=== PATIENT | female | born 1995 | race Caucasian/White ===

== ENCOUNTER 2016-11-19 21:18 | Emergency (ER) | payer OTHER ==
[~2016-11-19] VITALS: Ht 165.1 cm; Wt 61.5 kg
[2016-11-19 21:40] VITALS: TEMP 36.9; Ht 165.1 cm; Wt 61.5 kg
[2016-11-19] MEDS ORDERED: XYLOCAINE 1%/SOD BICARB 20 ML VIAL INFIL ONE (22:15)
[2016-11-19] MEDS ORDERED: BUPIVACAINE 0.5 % 5 MG/1 ML MPF 30ML VIAL INFIL ONE (22:15)
--- NOTE | 2016-11-19 22:31 | EMERGENCY ROOM VISIT NOTE ---
ED Visit Note First contact with patient: 21:51 CHIEF COMPLAINT: Finger laceration HISTORY OF PRESENT ILLNESS: This 21-year-old female patient presents to the emergency department approximately 30 minutes after cutting the right index finger she dropped a 50 pound weight on it. The bleeding has not stopped. Denies weakness or numbness of the finger. The patient has full range of motion of the fingers, however movement of the DIP does cause increased pain.. The patient rates the pain as throbbing and 7/10. The patient denies any other injuries. The patient's tetanus shot is up to date. REVIEW OF SYSTEMS: A 6 system review of systems was completed with positives and pertinent negatives listed in the HPI. ALLERGIES: None MEDICATIONS: None PMH: None SOCIAL HISTORY: The patient is a [employer] student. She lives locally with her roommate. The patient denies drug, alcohol, tobacco use. PHYSICAL EXAM: Vital Signs: Reviewed Nurse's notes, vital signs stable. GENERAL : This is a 21-year-old [facility] female, in no acute distress, well developed, well nourished. SKIN: There is a partial avulsion of the fingernail on the right index finger. Upon further inspection, the avulsion is down to the bone. The fingernail does remain attached on the lateral aspect of the finger. There is no foreign material in the wound and it looks clean. There is minimal active bleeding. No obvious tendons or significant blood vessels are seen in the base of the wound. Extension and flexion of the finger is full and strong. Full range of motion of the wrist and other fingers. Capillary refill less than 2 seconds. Normal sensation to light and sharp touch. RADIOLOGY: X-ray right index finger: FINDINGS: Alignment of the right second finger is anatomic. There is no acute fracture. There is soft tissue irregularity of the dorsal aspect of the distal right second finger which suggests soft tissue injury. There is no radiopaque foreign body. IMPRESSION: No acute fracture or dislocation of the right second finger. EMERGENCY DEPARTMENT COURSE: I examined the patient. Verbal consent was obtained to perform the procedure. Using sterile technique the wound was cleansed with Betadine. 4 ml of 1% buffered lidocaine with 0.5% bupivacaine was used to perform a digital block to anesthetize the patient. The area was sterilely draped. Once the patient was anesthetized, the wound was copiously irrigated under pressure with sterile saline. The wound was explored and there were no deep structures injured, however the avulsion was down to the bone. There were 2 small areas of active bleeding on inspection underneath the fingernail. These were ligated with 2 simple interrupted 5-0 Vicryl sutures. The fingernail was tacked down to cover the wound using 3 simple interrupted 5- 0 nylon sutures. The patient tolerated the procedure well. Hemostasis was achieved. The area was cleaned with sterile saline and dressed with bacitracin ointment and bandage. The patient was discharged home in good condition. DIFFERENTIAL DIAGNOSIS: Finger laceration, fracture, nail avulsion, avulsion fracture, open fracture, contusion, nail bed laceration, and others DIAGNOSIS: Partial fingernail avulsion DISCHARGE INSTRUCTIONS & TREATMENT: You have received 3 sutures on your finger nail. These sutures are NOT dissolvable and WILL need to be removed by a health care provider in 14 days. You can return to the Emergency Department or contact your Primary Care Provider to have the sutures removed. He did receive 2 dissolvable sutures underneath the fingernail. The sutures will dissolve on their own. Proper wound care is essential for adequate wound healing and infection prevention. You can shower and clean the wound with soap and water. Do not scour over the wound, pat dry with a towel. Do not submerse the wound (i.e. bathe or dish wash) until the sutures have been removed. You can use an antibiotic ointment with a dressing over the wound for the next 3-4 days. After this time you may leave the wound dry and open to the air. If crust develops over the wound you can use a Q-tip to apply a 1:1 peroxide:water solution to clean the wound. You were prescribed Keflex to be taken 4 times daily. This is an antibiotic. All antibiotics have the potential to cause diarrhea. Stop this medication and contact a medical provider if you were to develop any significant adverse side effects including: wheezing, shortness of breath, passing out, vomiting, or a diffuse rash. Always take antibiotics as directed and COMPLETE the ENTIRE course regardless of the improvement of your symptoms. Look for signs of infection of the wound including: increased pain, swelling, foul discharge, streaking, or increased temperature. Your wound was opened to the bone, so your chance of infection is higher than normal. If any of these are noticed you should return to the Emergency Department for further assessment and treatment. As with any laceration you may have received nerve damage to the surrounding tissues. This damage may or may not be permanent. You should keep the area covered with sunscreen for the first 6 months to 1 year when at risk for exposure to help minimize scarring. You can also use scar reducing creams or Vitamin E oil to help minimize scarring. For pain control, you can use the following qtzl-nwz-qopphcb medicines (if >12 yo): Ibuprofen(Motrin, Advil) may be used for fever or pain. Use 600mg every six hours as needed. Take with food. Avoid using more than 2400mg in a 24 hour period. Do not use 2400mg per day for more than three consecutive days without physician direction. Prolonged inappropriate use can lead to stomach upset or ulcers. (AND/OR) Acetaminophen(Tylenol) may be used for fever or pain. Use 1000mg every six hours as needed. Avoid using more than 3000mg in a 24 hour period. Return to the emergency department if your symptoms worsen despite treatment course outlined above. Current/Historical Medications Scheduled Cephalexin Monohydrate (Keflex), 500 MG PO QID Allergies Coded Allergies: No Known Allergies (Unverified Allergy, Mild, 08/29/07) Vital Signs Date Time Temp Pulse Resp B/P (MAP) Pulse Ox O2 Delivery O2 Flow Rate FiO2 11/20/16 00:00 92 18 121/86 99 11/19/16 21:40 36.9 100 18 135/100 95 Room Air Medications Administered Medications (Trade) Dose Ordered Sig/Renetta Route Start Time Stop Time Status Last Admin Dose Admin Cephalexin Monohydrate (Keflex 500MG Home Pack) 1 homepack NOW ONCE PO 11/19/16 23:45 11/19/16 23:46 DC 11/19/16 23:55 1 HOMEPACK Departure Information Impression Primary Impression: Fingernail avulsion, partial Dispostion Home / Self-Care Condition GOOD Prescriptions Cephalexin Monohydrate (Keflex) 500 Mg Cap 500 MG PO QID for 10 Days, #40 CAP Prov: Meagan Robertson PA-C 11/19/16 Referrals No Doctor, Assigned (PCP) Patient Instructions ED Laceration Ext Sutr Stap Tape, Inofile Additional Instructions You have received 3 sutures on your finger nail. These sutures are NOT dissolvable and WILL need to be removed by a health care provider in 14 days. You can return to the Emergency Department or contact your Primary Care Provider to have the sutures removed. He did receive 2 dissolvable sutures underneath the fingernail. The sutures will dissolve on their own. Proper wound care is essential for adequate wound healing and infection prevention. You can shower and clean the wound with soap and water. Do not scour over the wound, pat dry with a towel. Do not submerse the wound (i.e. bathe or dish wash) until the sutures have been removed. You can use an antibiotic ointment with a dressing over the wound for the next 3-4 days. After this time you may leave the wound dry and open to the air. If crust develops over the wound you can use a Q-tip to apply a 1:1 peroxide:water solution to clean the wound. You were prescribed Keflex to be taken 4 times daily. This is an antibiotic. All antibiotics have the potential to cause diarrhea. Stop this medication and contact a medical provider if you were to develop any significant adverse side effects including: wheezing, shortness of breath, passing out, vomiting, or a diffuse rash. Always take antibiotics as directed and COMPLETE the ENTIRE course regardless of the improvement of your symptoms. Look for signs of infection of the wound including: increased pain, swelling, foul discharge, streaking, or increased temperature. Your wound was opened to the bone, so your chance of infection is higher than normal. If any of these are noticed you should return to the Emergency Department for further assessment and treatment. As with any laceration you may have received nerve damage to the surrounding tissues. This damage may or may not be permanent. You should keep the area covered with sunscreen for the first 6 months to 1 year when at risk for exposure to help minimize scarring. You can also use scar reducing creams or Vitamin E oil to help minimize scarring. For pain control, you can use the following jvim-gon-xkvwyjy medicines (if >12 yo): Ibuprofen(Motrin, Advil) may be used for fever or pain. Use 600mg every six hours as needed. Take with food. Avoid using more than 2400mg in a 24 hour period. Do not use 2400mg per day for more than three consecutive days without physician direction. Prolonged inappropriate use can lead to stomach upset or ulcers. (AND/OR) Acetaminophen(Tylenol) may be used for fever or pain. Use 1000mg every six hours as needed. Avoid using more than 3000mg in a 24 hour period. Return to the emergency department if your symptoms worsen despite treatment course outlined above. Problem Qualifiers Primary Impression: Fingernail avulsion, partial Encounter type: initial encounter Qualified Codes: S61.309A - Unspecified open wound of unspecified finger with damage to nail, initial encounter
--- NOTE | 2016-11-19 22:46 | DIAGNOSTIC IMAGING REPORT ---
RIGHT INDEX FINGER RADIOGRAPHS CLINICAL HISTORY: Right index finger injury. COMPARISON: None FINDINGS: Alignment of the right second finger is anatomic. There is no acute fracture. There is soft tissue irregularity of the dorsal aspect of the distal right second finger which suggests soft tissue injury. There is no radiopaque foreign body. IMPRESSION: No acute fracture or dislocation of the right second finger. Electronically signed by: Alexis Arciniega M.D. 11/19/2016 10:45 PM Dictated Date/Time: 11/19/2016 10:44 PM
[2016-11-19] MEDS ORDERED: CEPHALEXIN 500MG HOME PACK 1 EA BTL PO ONE (23:45)
[2016-11-19] MEDS ORDERED: CEPH500C PO (23:52)
[2016-11-20] VITALS: BP 121/86; PULSE 92; O2SAT 99
== END 2016-11-20 00:01 | disposition home or self-care (01) ==
LOC: C.EDB 21:19
DX: S61.306A Unspecified open wound of right little finger with damage to nail, initial encounter (principal); W20.8XXA Other cause of strike by thrown, projected or falling object, initial encounter

== ENCOUNTER 2016-12-04 17:48 | Emergency (ER) | payer OTHER ==
[~2016-12-04] VITALS: Ht 165.1 cm; Wt 64.6 kg
[2016-12-04 18:08] VITALS: TEMP 36.7; Ht 165.1 cm; Wt 64.6 kg
[2016-12-04 18:37] VITALS: BP 97/67; PULSE 84; O2SAT 98
--- NOTE | 2016-12-05 02:22 | EMERGENCY ROOM VISIT NOTE ---
ED Visit Note First contact with patient: 18:13 CHIEF COMPLAINT: I need to have my sutures removed. HISTORY OF PRESENT ILLNESS: Ms. Paez is a 21-year-old female who ambulates into the ED requesting suture removal for a partial fingernail avulsion. Patient reports on November 19, 2 weeks ago, she sustained an injury to the right index fingernail and her fingernail was sutured onto the finger for a partial avulsion. She reports she is still having some mild to moderate tenderness throughout the distal finger, but she has not seen any swelling, redness, or drainage from the wound and she feels like the laceration is healing well. PHYSICAL EXAM: Vital Signs: Date Time Temp Pulse Resp B/P (MAP) Pulse Ox O2 Delivery O2 Flow Rate FiO2 12/04/16 18:37 84 98 12/04/16 18:08 36.7 89 18 103/67 99 General: 21-year-old female in no acute distress, nontoxic-appearing, afebrile and hemodynamically stable. Neurological: Awake, alert and oriented 3. Answering questions appropriately and following commands. Right Index Finger: No gross bony deformity. Patient's fingernail was stable over the nailbed. There is no local signs of infection (erythema, swelling, tenderness, purulent drainage). She continues to have contusion over the distal phalanx and some mild tenderness. ED COURSE: Patient is assessed as noted above. 3 sutures were removed without any difficulty and there was no separation of the wound edges. The fingernail remained stable. She did have a small amount of serosanguineous fluid after removal of the first suture but no active bleeding. Patient was educated about today's findings and instructed on her treatment plan ; she verbalized understanding and agreement with this plan. DISPOSITION: Patient discharged home in stable condition. CLINICAL IMPRESSION: Suture removal; Well healing laceration. PLAN: Patient is encouraged to continue current wound care instructions and to watch for any signs of infection. Patient was encouraged to follow-up with her primary care provider return to the ED for any signs of infection or any new/concerning symptoms.
== END 2016-12-04 18:37 | disposition home or self-care (01) ==
LOC: C.EDB 17:48 → C.EDD 18:37
DX: Z48.02 Encounter for removal of sutures (principal)

== ENCOUNTER 2017-04-03 18:41 | Emergency (ER) | payer OTHER ==
[~2017-04-03] VITALS: Ht 165.1 cm; Wt 67.6 kg
[2017-04-03 18:52] VITALS: TEMP 36.8; Ht 165.1 cm; Wt 67.6 kg
--- NOTE | 2017-04-03 19:27 | DIAGNOSTIC IMAGING REPORT ---
L FOOT MIN 3 VIEWS ROUTINE CLINICAL HISTORY: Left foot pain. No known injury. COMPARISON: None FINDINGS: Alignment of the left foot is anatomic. Tarsometatarsal joints are intact. No acute fracture or osseous lesion is identified on this exam. No erosions are identified. Joint spaces are preserved. IMPRESSION: Unremarkable left foot radiographs. Electronically signed by: Alexis Arciniega M.D. 04/03/2017 7:26 PM Dictated Date/Time: 04/03/2017 7:25 PM
[2017-04-03 20:12] VITALS: BP 108/64; PULSE 86; O2SAT 96
--- NOTE | 2017-04-03 22:01 | EMERGENCY ROOM VISIT NOTE ---
History First contact with patient: 19:01 Chief Complaint: FOOT PAIN Stated Complaint: PAIN IN L FOOT-HURTS TO WALK History of Present Illness The patient is a 21 year old female who presents to the Emergency Room with complaints of pain in her left heel. The patient reports that the pain started last night. The patient is a runner, but denies any significant pain after running yesterday. She denies any prior history of foot injuries or stress fractures. She denies any pain extending into the ankle or leg region. She denies paresthesias or numbness of the left foot or toes, and rates her discomfort an 8 out of 10 with weightbearing. Review of Systems 10 system review was performed and was negative except for pertinent positives and negatives as indicated in history of present illness Past Medical/Surgical History Medical Problems: (1) No significant past medical history Surgical Problems: (1) No history of previous surgery Family History No significant family history Social History Smoking Status: Never Smoker Alcohol Use: none Marital Status: single Occupation Status: [employer] student Current/Historical Medications No Active Prescriptions or Reported Meds Physical Exam Vital Signs Date Time Temp Pulse Resp B/P (MAP) Pulse Ox O2 Delivery O2 Flow Rate FiO2 04/03/17 20:12 86 16 108/64 96 04/03/17 18:52 36.8 86 18 104/71 95 Room Air Physical Exam CONSTITUTIONAL: Healthy and well nourished. Alert and oriented X 3 with positive affect. HEENT: Normocephalic, atraumatic. Pupils equal, round and reactive. NECK: Full active range of motion without discomfort. MUSCULOSKELETAL: Examination of the left foot does not show any obvious edema, ecchymosis or erythema. She has mild tenderness to palpation over the lateral calcaneal region. No focal discomfort over the plantar fascia or urgent, Achilles tendon or posterior tibial/peroneal tendons. Negative anterior draw. No worsening pain with subtalar motion. Pedal pulses are intact. Negative talar tilt test. INTEGUMENTARY: No rash or other significant dermatologic conditions noted. NEUROLOGIC: No focal neurologic deficits noted. Left foot and toes are sensory intact. Medical Decision & Procedures ER Provider Diagnostic Interpretation: My interpretation of left foot x-rays does not show any all areas fractures or dislocations. Radiologist report is as follows: L FOOT MIN 3 VIEWS ROUTINE CLINICAL HISTORY: Left foot pain. No known injury. COMPARISON: None FINDINGS: Alignment of the left foot is anatomic. Tarsometatarsal joints are intact. No acute fracture or osseous lesion is identified on this exam. No erosions are identified. Joint spaces are preserved. IMPRESSION: Unremarkable left foot radiographs. ED Course Patient history and physical exam were performed. Nurse's notes were reviewed. Vital signs were reviewed and were normal. X-rays of the left foot were normal. The patient was encouraged to intermittently apply ice to the foot. She was encouraged to avoid running for now until symptoms improve. The patient was offered crutches but refused. She was encouraged to alternate ibuprofen and Tylenol as needed for pain. The patient was encouraged to follow- up with orthopedics if symptoms are not improving within the next week. The patient was happy with plan of care, voice understanding of all discharge instructions, and rated her overall discomfort a 3 out of 10 at the time of discharge. Medical Decision Medication Reconcilliation Current Medication List: was personally reviewed by me Blood Pressure Screening Patient's blood pressure: Normal blood pressure Impression Primary Impression: Pain of left heel Departure Information Prescriptions No Active Prescriptions or Reported Meds Referrals No Doctor, Assigned (PCP) Patient Instructions My [facility]
== END 2017-04-03 20:13 | disposition home or self-care (01) ==
LOC: C.EDB 18:42 → C.EDD 20:13
DX: M79.672 Pain in left foot (principal)

== ENCOUNTER 2017-05-20 20:37 | Emergency (ER) | payer OTHER ==
[~2017-05-20] VITALS: Ht 165.1 cm; Wt 70.9 kg
[2017-05-20 20:50] VITALS: TEMP 36.7; Ht 165.1 cm; Wt 70.9 kg
[2017-05-20 21:31] LABS: BASO % 0.2 %; BASO ABS # 0.02 K/uL (0-0.2); EOS % 0.5 %; EOS ABS # 0.04 K/uL (0-0.5); HEMATOCRIT 40.7 % (37-47); HEMOGLOBIN 13.7 g/dL (12.0-16.0); IG# 0.02 K/uL (0.00-0.02); LYMPH % 30.8 %; LYMPH ABS # 2.53 K/uL (1.2-3.4); MEAN CELL VOLUME 86.6 fL (80-100); MEAN CORPUSCULAR HEMOGLOBIN 29.1 pg (25-34); MEAN CORPUSCULAR HGB CONC 33.7 g/dl (32-36); MEAN PLATELET VOLUME 8.8 fL (7.4-10.4); MONO ABS # 0.49 K/uL (0.11-0.59); NEUT % 62.3 %; NEUT ABS # 5.12 K/uL (1.4-6.5); PLATELET COUNT 277 K/uL (130-400); RED CELL DISTRIBUTION WIDTH CV 13.5 % (11.5-14.5); RED CELL DISTRIBUTION WIDTH SD 42.8 fL (36.4-46.3); WHITE BLOOD COUNT 8.22 K/uL (4.8-10.8)
[2017-05-20] MEDS ORDERED: KETOROLAC TROMETHAMINE 30 MG/ML VIAL IV STA (21:40)
[2017-05-20 21:49] LABS: ALBUMIN 3.3 gm/dl (3.4-5.0); CALCIUM 7.8 mg/dl (8.5-10.1); CREATININE 0.79 mg/dl (0.60-1.20); POTASSIUM 3.8 mmol/L (3.5-5.1)
--- NOTE | 2017-05-20 23:06 | DIAGNOSTIC IMAGING REPORT ---
APPENDIX ULTRASOUND HISTORY: Right lower quadrant pain. COMPARISON: None. FINDINGS: Transabdominal scanning of the right lower quadrant was performed. The appendix was not identified. There are no fluid collections or masses within the right lower quadrant. IMPRESSION: The appendix was not identified. Electronically signed by: Chintan Acosta M.D. 05/20/2017 11:05 PM Dictated Date/Time: 05/20/2017 11:04 PM
--- NOTE | 2017-05-20 23:07 | DIAGNOSTIC IMAGING REPORT ---
PELVIC ULTRASOUND, TRANSABDOMINAL HISTORY: Right lower quadrant pain. COMPARISON: None. FINDINGS: The patient deferred transvaginal scanning. Uterus: 7.7 x 5.9 x 3.4 cm. Endometrial stripe: 6 mm in thickness. Right ovary: Normal in size and demonstrates normal color flow. Left ovary: Normal in size and demonstrates normal color flow. Miscellaneous:Trace pelvic free fluid. IMPRESSION: No significant abnormality identified within the pelvis. Trace pelvic free fluid. This is likely physiologic. Electronically signed by: Chintan Acosta M.D. 05/20/2017 11:06 PM Dictated Date/Time: 05/20/2017 11:05 PM
[2017-05-20] MEDS ORDERED: [UNRECOGNIZED DRUG - REMARK] PO (23:23)
[2017-05-20] MEDS ORDERED: OPTIRAY 320 IV PRN (23:30)
[2017-05-21 00:39] VITALS: BP 115/72; PULSE 84; O2SAT 96
--- NOTE | 2017-05-21 05:18 | EMERGENCY ROOM VISIT NOTE ---
History First contact with patient: 21:23 Chief Complaint: ABDOMINAL PAIN Stated Complaint: PAIN IN THE APPENDIX History of Present Illness The patient is a 21 year old female who presents to the Emergency Room with complaints of right lower quadrant pain for the past day described as discomfort , ranging in severity 4 out of 10. Nothing makes it better or worse. Does not radiate. Patient denies chest pain, dyspnea, fever, chills, nausea, vomiting, diarrhea, back pain, flank pain, urinary symptoms, vaginal itching or discharge. Review of Systems An 10 system review of systems was completed with positives and pertinent negatives listed in the HPI. Past Medical/Surgical History Medical Problems: (1) No significant past medical history Surgical Problems: (1) No history of previous surgery Family History No significant family history Social History Smoking Status: Never Smoker Alcohol Use: none Drug Use: none Marital Status: single Occupation Status: [employer] student Current/Historical Medications Scheduled PRN ["Stomach Med"], 1 DOSE PO DIRECTED PRN for Indigestion Physical Exam Vital Signs Date Time Temp Pulse Resp B/P (MAP) Pulse Ox O2 Delivery O2 Flow Rate FiO2 05/21/17 00:39 84 20 115/72 96 05/20/17 23:17 71 16 100 Room Air 05/20/17 23:16 105/71 05/20/17 20:50 36.7 74 18 120/76 98 Room Air Physical Exam VITALS: Vitals are noted on the nurse's note and reviewed by myself. Vital signs stable. GENERAL: Pleasant female, in no acute distress, nondiaphoretic, well-developed well-nourished. SKIN: Capillary reflex less than 2 seconds. HEENT: Normocephalic. PERRLA. EOMI. Nares patent. Mucous membranes moist. Neck is supple without nuchal rigidity. HEART: Regular rate and rhythm without murmurs gallops or rubs. LUNGS: Clear to auscultation bilaterally without wheezes, rales or rhonchi. No retractions or accessory muscle use. ABDOMEN: Positive bowel sounds x 4. Normal tympanic percussion. Soft, tender to palpation right lower quadrant, no CVA tenderness, without masses or organomegaly. Wilder sign negative. No guarding or rebound tenderness. MUSCULOSKELETAL: No gross musculoskeletal defects. No pedal edema. No calf tenderness. NEURO: Patient was alert and oriented to person place and time. Normal sensation to light and sharp touch. No focal neurological deficits. Medical Decision & Procedures Laboratory Results 05/20/17 21:15 Red Blood Count 4.70, Mean Corpuscular Volume 86.6, Mean Corpuscular Hemoglobin 29.1, Mean Corpuscular Hemoglobin Concent 33.7, Mean Platelet Volume 8.8, Neutrophils (%) (Auto) 62.3, Lymphocytes (%) (Auto) 30.8, Monocytes (%) (Auto) 6.0, Eosinophils (%) (Auto) 0.5, Basophils (%) (Auto) 0.2, Neutrophils # (Auto) 5.12, Lymphocytes # (Auto) 2.53, Monocytes # (Auto) 0.49, Eosinophils # (Auto) 0.04, Basophils # (Auto) 0.02 05/20/17 21:15 Test 05/20/17 21:15 05/20/17 21:18 White Blood Count 8.22 K/uL (4.8-10.8) Red Blood Count 4.70 M/uL (4.2-5.4) Hemoglobin 13.7 g/dL (12.0-16.0) Hematocrit 40.7 % (37-47) Mean Corpuscular Volume 86.6 fL (80-100) Mean Corpuscular Hemoglobin 29.1 pg (25-34) Mean Corpuscular Hemoglobin Concent 33.7 g/dl (32-36) Platelet Count 277 K/uL (130-400) Mean Platelet Volume 8.8 fL (7.4-10.4) Neutrophils (%) (Auto) 62.3 % Lymphocytes (%) (Auto) 30.8 % Monocytes (%) (Auto) 6.0 % Eosinophils (%) (Auto) 0.5 % Basophils (%) (Auto) 0.2 % Neutrophils # (Auto) 5.12 K/uL (1.4-6.5) Lymphocytes # (Auto) 2.53 K/uL (1.2-3.4) Monocytes # (Auto) 0.49 K/uL (0.11-0.59) Eosinophils # (Auto) 0.04 K/uL (0-0.5) Basophils # (Auto) 0.02 K/uL (0-0.2) RDW Standard Deviation 42.8 fL (36.4-46.3) RDW Coefficient of Variation 13.5 % (11.5-14.5) Immature Granulocyte % (Auto) 0.2 % Immature Granulocyte # (Auto) 0.02 K/uL (0.00-0.02) Anion Gap 5.0 mmol/L (3-11) Est Creatinine Clear Calc Drug Dose 111.3 ml/min Estimated GFR () 124.0 Estimated GFR (Non- 107.0 BUN/Creatinine Ratio 17.0 (10-20) Calcium Level 7.8 mg/dl (8.5-10.1) Total Bilirubin 0.3 mg/dl (0.2-1) Aspartate Amino Transf (AST/SGOT) 22 U/L (15-37) Alanine Aminotransferase (ALT/SGPT) 25 U/L (12-78) Alkaline Phosphatase 38 U/L (45-117) Total Protein 6.0 gm/dl (6.4-8.2) Albumin 3.3 gm/dl (3.4-5.0) Globulin 2.7 gm/dl (2.5-4.0) Albumin/Globulin Ratio 1.2 (0.9-2) Lipase 148 U/L (73-393) Urine Color YELLOW Urine Appearance CLEAR (CLEAR) Urine pH 7.0 (4.5-7.5) Urine Specific [place] 1.004 (1.000-1.030) Urine Protein NEG (NEG) Urine Glucose (UA) NEG (NEG) Urine Ketones NEG (NEG) Urine Occult Blood NEG (NEG) Urine Nitrite NEG (NEG) Urine Bilirubin NEG (NEG) Urine Urobilinogen NEG (NEG) Urine Leukocyte Esterase NEG (NEG) Medications Administered Medications (Trade) Dose Ordered Sig/Renetta Route Start Time Stop Time Status Last Admin Dose Admin Ketorolac Tromethamine (Toradol Inj) 30 mg NOW STAT IV 05/20/17 21:40 05/20/17 21:42 DC 05/20/17 21:47 30 MG ED Course Prior records/ancillary studies reviewed. Triage Nursing notes reviewed. Additional history obtained from friend The patient's history was concerning for abdominal pain. Differential diagnosis: Etiologies such as cyst, torsion, , appendicitis, diverticulitis, PUD, biliary pathology, UTI, pancreatitis, obstruction, mesenteric ischemia, aortic pathology, infections, inflammatory bowel disease, renal colic, as well as others were entertained. Physical examination findings: As above. ER treatment provided: Toradol On reassessment the patient felt better. Diagnostics interpreted by me: The labs revealed no worsening leukocytosis or electrolyte normality. Negative hCG. Negative urine Imaging studies: CT ABDOMEN & PELVIS With Contrast: Visualized segments of the appendix are unremarkable. Solid organs within normal limits Small anterior pericardial fluid. Small amount of fluid in the pelvis. Radiologist: Jaspal Womack M.D. PELVIC ULTRASOUND, TRANSABDOMINAL HISTORY: Right lower quadrant pain. COMPARISON: None. FINDINGS: The patient deferred transvaginal scanning. Uterus: 7.7 x 5.9 x 3.4 cm. Endometrial stripe: 6 mm in thickness. Right ovary: Normal in size and demonstrates normal color flow. Left ovary: Normal in size and demonstrates normal color flow. Miscellaneous:Trace pelvic free fluid. IMPRESSION: No significant abnormality identified within the pelvis. Trace pelvic free fluid. This is likely physiologic. Electronically signed by: Chintan Acosta M.D. 05/20/2017 11:06 PM Exam and history seem consistent with abdominal pain with unclear etiology. Patient does not have acute abdomen on exam. Normal appendix. No cyst or torsion. No urine infection. She was not . Family was advised to follow-up in a day or 2 with family care here in the ER sooner for abdominal pain, fevers, vomiting, worsening signs or symptoms or as needed.By the evaluation outlined above emergent etiologies such as appendicitis, diverticulitis, PUD, biliary pathology, UTI, pancreatitis, obstruction, mesenteric ischemia, aortic pathology, infections, inflammatory bowel disease, renal colic, as well as others were deemed relatively unlikely. The pt informed about the findings as listed above. All questions were answered and pleased with the treatment. Return instructions were outlined and the patient was discharged in stable condition. Case reviewed with my attending Referral: The patient was referred back to their primary care physician for follow-up in 2 to 3 days for a recheck of the current condition. The chart was completed utilizing [employer] voice recognition software. Grammatical errors, random word insertions, pronoun errors, and incomplete sentences are an occassional consequence of this system due to software limitations, ambient noise, and hardware issues. Any formal questions or concerns about the content, text, or information contained within the body of this dictation should be directly addressed to the physician printer floor covering assistant for clarification. Medical Decision As above Medication Reconcilliation Current Medication List: was personally reviewed by me Blood Pressure Screening Patient's blood pressure: Normal blood pressure Impression Primary Impression: Right lower quadrant abdominal pain Departure Information Dispostion Home / Self-Care Condition GOOD Forms HOME CARE DOCUMENTATION FORM, Work Instructions, Return To Work: 2 days IMPORTANT VISIT INFORMATION Patient Instructions Abdominal Pain - [facility] Additional Instructions Your CT showed a little bit of fluid around your heart region. Follow-up with family care for this. Ibuprofen(Motrin, Advil) may be used for fever or pain. Use 600mg every six hours as needed. Take with food. Avoid using more than 2400mg in a 24 hour period. Do not use 2400mg per day for more than three consecutive days without physician direction. Prolonged inappropriate use can lead to stomach upset or ulcers. (AND/OR) Acetaminophen(Tylenol) may be used for fever or pain. Use 1000mg every six hours as needed. Avoid using more than 4000mg in a 24 hour period. Rest and drink plenty of fluids as tolerated. Continue current medications. Avoid strenuous activities and anything that worsens your pain. Resume normal activities once your symptoms resolve. Return to the ER immediately for worsening or persistent abdominal pain, vomiting, fevers, chest pains, difficulty breathing, worsening of your condition , or as needed. Follow up with your primary physician in 2-3 days for a recheck of your current condition. Work Instructions Return To Work: 2 days
--- NOTE | 2017-05-21 06:35 | DIAGNOSTIC IMAGING REPORT ---
CT ABD/PELVIS IV CONTRAST ONLY CLINICAL HISTORY: Right lower quadrant abdominal pain COMPARISON STUDY: None. TECHNIQUE: Following the IV administration of 119 mL of [id number]-320, CT scan of the abdomen and pelvis was performed from the lung bases to the proximal femurs. Images are reviewed in the axial, sagittal, and coronal planes. IV contrast was administered without complication. A dose lowering technique was utilized adhering to the principles of ALARA. CT DOSE: 272.91 mGy.cm FINDINGS: Lower chest: There is trace pericardial fluid. There are minimal dependent atelectatic changes. Liver: The contrast-enhanced liver is normal in size, contour, and attenuation. There is no intrahepatic biliary ductal dilatation. The hepatic veins and portal veins are patent. Gallbladder: Unremarkable. Spleen: Normal in size and attenuation. Pancreas: Unremarkable. Adrenal glands: Unremarkable. Kidneys: There is symmetric renal cortical enhancement. The kidneys are normal in size without hydronephrosis. Bowel: There are no transition zones indicate bowel obstruction. There is no acute diverticulitis. The appendix appears normal. Peritoneum: There is a small amount of free pelvic fluid. No free air is visualized. Vasculature: The abdominal aorta is normal in course and caliber. Adenopathy: None. Pelvic viscera: The bladder, and pelvic viscera are unremarkable. Skeletal structures: No destructive osseous lesions are seen. IMPRESSION: 1. No evidence of bowel obstruction. No evidence of free air 2. No evidence of acute appendicitis 3. Small amount of free fluid within the pelvis Electronically signed by: Abran Monroe M.D. 05/21/2017 6:34 AM Dictated Date/Time: 05/21/2017 6:31 AM
== END 2017-05-21 00:40 | disposition home or self-care (01) ==
LOC: C.EDB 20:38
DX: R10.31 Right lower quadrant pain (principal)